=== PATIENT | male | born 1995 | race Caucasian/White ===

== ENCOUNTER 2021-11-26 01:55 | Inpatient (IN) | payer OTHER ==
[~2021-11-26] VITALS: Ht 177.8 cm; Wt 68.2 kg
[2021-11-26 02:24] LABS: HEMATOCRIT 49.1 % (42.0-52.0); HEMOGLOBIN 16.7 g/dl (13.5-17.5); MEAN CORPUSCULAR HEMOGLOBIN 29.7 pg (27.0-33.0); MEAN CORPUSCULAR VOLUME 87.2 fl (80.0-96.0); PLATELET COUNT, AUTOMATED 315 10^3/uL (150-450); RED BLOOD COUNT 5.63 10^6/uL (4.30-6.10); WHITE BLOOD COUNT 11.2 10^3/uL (4.0-10.0)
[2021-11-26 02:50] LABS: AMPHETAMINES LEVEL URINE NEGATIVE (NEGATIVE); BARBITURATES URINE NEGATIVE (NEGATIVE); BENZODIAZEPINES URINE NEGATIVE (NEGATIVE); CANNABINOIDS URINE NEGATIVE (NEGATIVE); COCAINE METABOLITE URINE NEGATIVE (NEGATIVE); METHADONE URINE NEGATIVE (NEGATIVE); OPIATES URINE NEGATIVE (NEGATIVE); PHENCYCLIDINE URINE NEGATIVE (NEGATIVE)
[2021-11-26 03:01] LABS: ACETAMINOPHEN LEVEL < 2.0 UG/ML (10.0-30.0); ALBUMIN 4.6 GM/DL (3.2-5.2); ALT/SGPT 32 U/L (12-78); BILIRUBIN,DIRECT 0.1 MG/DL (0.0-0.2); BILIRUBIN,TOTAL 0.3 MG/DL (0.2-1.0); BLOOD UREA NITROGEN 8 MG/DL (7-18); CALCIUM LEVEL 9.3 MG/DL (8.5-10.1); CARBON DIOXIDE LEVEL 29 MEQ/L (21-32); CHLORIDE LEVEL 106 MEQ/L (98-107); CREATININE FOR GFR 0.92 MG/DL (0.70-1.30); ETHYL ALCOHOL (ETHANOL) 0.252 % (0.000-0.010); GLOMERULAR FILTRATION RATE > 60.0 (>60); GLUCOSE, FASTING 94 MG/DL (70-100); POTASSIUM SERUM 4.2 MEQ/L (3.5-5.1); SALICYLATE LEVEL 4.1 MG/DL (5.0-30.0); SODIUM LEVEL 143 MEQ/L (136-145); TOTAL PROTEIN 8.6 GM/DL (6.4-8.2)
[2021-11-26 03:14] LABS: RSV AMPLIFICATION NEGATIVE (NEGATIVE)
[2021-11-26] MEDS ORDERED: LORazepam 2 MG TAB PO PRN (04:25)
[2021-11-26] MEDS: MULTIVITAMINS/MINERALS THERAP 1 TAB PO SCH (09:19)
[2021-11-26] MEDS: THIAMINE 100 MG TAB PO SCH ×2 (09:19→20:34)
[2021-11-26] MEDS: FOLIC ACID 1 MG TAB PO SCH (09:19)
[2021-11-27] MEDS ORDERED: HOME MED LIST COMPLETE! XX SCH (07:10)
[2021-11-27] MEDS: FOLIC ACID 1 MG TAB PO SCH (09:00)
[2021-11-27] MEDS: NICOTINE 21MG/24HR 1 EA TRANSDERMAL TD SCH (09:00)
[2021-11-27] MEDS: MULTIVITAMINS/MINERALS THERAP 1 TAB PO SCH (09:00)
[2021-11-27] MEDS: THIAMINE 100 MG TAB PO SCH ×2 (09:00→21:57)
[2021-11-27] MEDS ORDERED: MOM 30ML SUSPENSION UDC PO PRN (12:30)
[2021-11-27] MEDS ORDERED: diphenhydrAMINE 25MG CAP PO PRN (12:30)
[2021-11-27] MEDS ORDERED: ACETAMINOPHEN TAB 650MG DOSE (2X325MG) PO PRN (12:30)
[2021-11-27] MEDS ORDERED: MAALOX 30 ML SUSP *UDC PO PRN (12:30)
[2021-11-27] MEDS ORDERED: OLANZapine 5 MG TAB PO PRN (12:30)
[2021-11-27] MEDS ORDERED: LORazepam 2 MG TAB PO PRN (12:30)
[2021-11-27 17:15] VITALS: BP 136/82
[2021-11-27 17:20] VITALS: BP 136/82
[2021-11-27] MEDS: traZODone 50 MG TAB PO PRN (21:57)
[2021-11-28 06:38] VITALS: BP 132/71
[2021-11-28] MEDS: NICOTINE 21MG/24HR 1 EA TRANSDERMAL TD SCH (08:21)
[2021-11-28] MEDS: MULTIVITAMINS/MINERALS THERAP 1 TAB PO SCH (08:21)
[2021-11-28] MEDS: FOLIC ACID 1 MG TAB PO SCH (08:21)
[2021-11-28] MEDS: THIAMINE 100 MG TAB PO SCH ×2 (08:21→20:18)
[2021-11-28] MEDS: SERTRALINE HCL 25 MG TABLET PO SCH (11:55)
[2021-11-28 15:00] VITALS: BP 140/83
[2021-11-28 15:47] VITALS: BP 140/83
[2021-11-28] MEDS: traZODone 50 MG TAB PO PRN (20:18)
[2021-11-28 21:17] VITALS: BP 140/83
[2021-11-29 06:48] VITALS: BP 121/56
[2021-11-29 06:49] VITALS: BP 121/56
[2021-11-29] MEDS: MULTIVITAMINS/MINERALS THERAP 1 TAB PO SCH (08:11)
[2021-11-29] MEDS: FOLIC ACID 1 MG TAB PO SCH (08:11)
[2021-11-29] MEDS: NICOTINE 21MG/24HR 1 EA TRANSDERMAL TD SCH (08:11)
[2021-11-29] MEDS: THIAMINE 100 MG TAB PO SCH ×2 (08:12→20:48)
[2021-11-29] MEDS: SERTRALINE HCL 25 MG TABLET PO SCH (08:12)
[2021-11-29 16:01] VITALS: BP 138/79
[2021-11-29 20:11] VITALS: BP 138/79
[2021-11-29] MEDS: traZODone 50 MG TAB PO PRN (20:47)
[2021-11-30 06:24] VITALS: BP 142/64
[2021-11-30 06:25] VITALS: BP 142/64
[2021-11-30] MEDS: MULTIVITAMINS/MINERALS THERAP 1 TAB PO SCH (08:05)
[2021-11-30] MEDS: FOLIC ACID 1 MG TAB PO SCH (08:05)
[2021-11-30] MEDS: SERTRALINE HCL 50 MG TAB PO SCH (08:05)
[2021-11-30] MEDS: THIAMINE 100 MG TAB PO SCH (08:05)
[2021-11-30] MEDS: NICOTINE 21MG/24HR 1 EA TRANSDERMAL TD SCH (08:06)
[2021-11-30 14:00] VITALS: BP 146/68
[2021-11-30 15:00] VITALS: BP 146/68
[2021-11-30] MEDS: hydrOXYzine 25 MG TAB PO PRN (20:08)
[2021-11-30] MEDS: traZODone 50 MG TAB PO PRN (20:08)
[2021-12-01] MEDS ORDERED: HYDR-3363 PO (08:15)
[2021-12-01] MEDS ORDERED: TRAZ-252 PO (08:15)
[2021-12-01] MEDS ORDERED: SERT50TA29 PO (08:15)
[2021-12-01] MEDS: NICOTINE 21MG/24HR 1 EA TRANSDERMAL TD SCH (08:18)
[2021-12-01] MEDS: SERTRALINE HCL 50 MG TAB PO SCH (08:20)
[2021-12-01] MEDS: hydrOXYzine 25 MG TAB PO PRN (08:20)
== END 2021-12-01 09:10 | DRG 881 ==
LOC: M ED 01:55 → M ED INP 11-27 12:30 → M PSY 11-27 17:07
PROVIDERS: ADMIT Student in an Organized Health Care Education/Training Program; ATTEND Student in an Organized Health Care Education/Training Program
DX: F32.A Depression, unspecified (principal); R45.851 Suicidal ideations; F41.1 Generalized anxiety disorder; F32.9 Major depressive disorder, single episode, unspecified; F43.10 Post-traumatic stress disorder, unspecified; F10.10 Alcohol abuse, uncomplicated; F17.210 Nicotine dependence, cigarettes, uncomplicated; Z88.0 Allergy status to penicillin

== ENCOUNTER 2022-06-15 01:12 | Emergency (ER) | payer OTHER ==
[~2022-06-15] VITALS: Ht 175.3 cm; Wt 77.6 kg
[~2022-06-15 01:12] MED LIST: HYDR-3363 PO; SERT50TA29 PO; TRAZ-252 PO
[2022-06-15] MEDS ORDERED: NS 1,000 ML IV ONE (01:40)
[2022-06-15 01:56] LABS: BASO # 0.1 10^3/uL (0.0-0.2); BASO % 0.5 % (0.0-1.0); EOS # 0.9 10^3/uL (0.0-0.5); EOS % 8.2 % (0.0-3.0); HEMATOCRIT 46.2 % (42.0-52.0); HEMOGLOBIN 15.4 g/dl (13.5-17.5); LYMPH # 4.2 10^3/uL (1.5-5.0); LYMPH % 37.9 % (24.0-44.0); MEAN CORPUSCULAR HEMOGLOBIN 29.1 pg (27.0-33.0); MEAN CORPUSCULAR HGB CONC 33.3 g/dl (32.0-36.5); MEAN CORPUSCULAR VOLUME 87.3 fl (80.0-96.0); MONO % 8.8 % (2.0-8.0); NEUTROPHILS # 4.8 10^3/uL (1.5-8.5); NEUTROPHILS % 44.1 % (36.0-66.0); PLATELET COUNT, AUTOMATED 231 10^3/uL (150-450); RED BLOOD COUNT 5.29 10^6/uL (4.30-6.10)
[2022-06-15 02:22] LABS: ACETAMINOPHEN LEVEL < 2.0 UG/ML (10.0-30.0); ALBUMIN 3.8 GM/DL (3.2-5.2); ALT/SGPT 64 U/L (12-78); BILIRUBIN,DIRECT < 0.1 MG/DL (0.0-0.2); BILIRUBIN,TOTAL 0.3 MG/DL (0.2-1.0); BLOOD UREA NITROGEN 13 MG/DL (7-18); CALCIUM LEVEL 8.9 MG/DL (8.5-10.1); CARBON DIOXIDE LEVEL 24 MEQ/L (21-32); CHLORIDE LEVEL 105 MEQ/L (98-107); CREATININE FOR GFR 1.01 MG/DL (0.70-1.30); ETHYL ALCOHOL (ETHANOL) 0.333 % (0.000-0.010); GLOMERULAR FILTRATION RATE > 60.0 (>60); GLUCOSE, FASTING 103 MG/DL (70-100); POTASSIUM SERUM 4.3 MEQ/L (3.5-5.1); SALICYLATE LEVEL 3.6 MG/DL (5.0-30.0); SODIUM LEVEL 140 MEQ/L (136-145); TOTAL PROTEIN 7.2 GM/DL (6.4-8.2)
[2022-06-15] MEDS ORDERED: NS 2,000 ML in IV 1 EA IV ONE (02:30)
[2022-06-15 02:40] LABS: AMPHETAMINES LEVEL URINE NEGATIVE (NEGATIVE); BARBITURATES URINE NEGATIVE (NEGATIVE); BENZODIAZEPINES URINE NEGATIVE (NEGATIVE); CANNABINOIDS URINE NEGATIVE (NEGATIVE); COCAINE METABOLITE URINE NEGATIVE (NEGATIVE); METHADONE URINE NEGATIVE (NEGATIVE); OPIATES URINE NEGATIVE (NEGATIVE); PHENCYCLIDINE URINE NEGATIVE (NEGATIVE)
[2022-06-15 02:59] LABS: APPEARANCE, URINE MANUAL CLEAR (CLEAR); COLOR, URINE MANUAL YELLOW (YELLOW)
[2022-06-15 03:00] LABS: BILIRUBIN, URINE MANUAL NEGATIVE (NEGATIVE); BLOOD URINE MANUAL NEGATIVE (NEGATIVE); GLUCOSE, URINE (UA) MANUAL NEGATIVE (NEGATIVE); KETONE, URINE MANUAL NEGATIVE (NEGATIVE); LEUKOCYTE ESTERASE, URINE MAN NEGATIVE (NEGATIVE); NITRITE, URINE MANUAL NEGATIVE (NEGATIVE); PROTEIN, URINE MANUAL NEGATIVE (NEGATIVE); UROBILINOGEN, URINE MANUAL NORMAL (NORMAL)
[2022-06-15 07:53] VITALS: BP 142/66
== END 2022-06-15 07:55 | disposition home or self-care (01) ==
LOC: M ED 01:12 → EDBD 01:12 → M ED 07:55
DX: F10.129 Alcohol abuse with intoxication, unspecified (principal); M62.82 Rhabdomyolysis; Z88.1 Allergy status to other antibiotic agents; Z79.899 Other long term (current) drug therapy

== ENCOUNTER 2022-09-05 22:01 | Inpatient (IN) | payer OTHER ==
[~2022-09-05] VITALS: Ht 177.8 cm; Wt 67.2 kg
[2022-09-05 22:36] LABS: BASO # 0.1 10^3/uL (0.0-0.2); BASO % 0.7 % (0.0-1.0); EOS # 0.5 10^3/uL (0.0-0.5); EOS % 6.9 % (0.0-3.0); HEMOGLOBIN 17.8 g/dl (13.5-17.5); LYMPH % 44.6 % (24.0-44.0); MEAN CORPUSCULAR HEMOGLOBIN 30.7 pg (27.0-33.0); MEAN CORPUSCULAR HGB CONC 34.9 g/dl (32.0-36.5); MEAN CORPUSCULAR VOLUME 87.9 fl (80.0-96.0); MONO # 0.6 10^3/uL (0.0-0.8); MONO % 9.1 % (2.0-8.0); NEUTROPHILS # 2.6 10^3/uL (1.5-8.5); PLATELET COUNT, AUTOMATED 243 10^3/uL (150-450); WHITE BLOOD COUNT 6.8 10^3/uL (4.0-10.0)
[2022-09-05 22:56] LABS: ACETAMINOPHEN LEVEL < 2.0 UG/ML (10.0-20.0); BILIRUBIN,DIRECT 0.1 MG/DL (<0.4); CPK CREATINE PHOSPHOKINASE 104 U/L (46-171)
[2022-09-05 22:57] LABS: ALBUMIN 4.5 G/DL (3.2-5.2); ALKALINE PHOSPHATASE 73 U/L (46-116); ALT/SGPT 24 U/L (7.0-40); AST/SGOT 23 U/L (<34); BILIRUBIN,TOTAL 0.3 MG/DL (0.3-1.2); BLOOD UREA NITROGEN 10 MG/DL (9-23); CALCIUM LEVEL 8.7 MG/DL (8.5-10.1); CARBON DIOXIDE LEVEL 28 MMOL/L (20-31); CHLORIDE LEVEL 106 MMOL/L (98-107); CREATININE FOR GFR 0.98 MG/DL (0.70-1.30); GLOMERULAR FILTRATION RATE > 60.0 (>60); GLUCOSE, FASTING 77 MG/DL (60-100); POTASSIUM SERUM 3.8 MMOL/L (3.5-5.1); SALICYLATE LEVEL < 3.0 MG/DL (<30); SODIUM LEVEL 142 MMOL/L (136-145); TOTAL PROTEIN 8.3 G/DL (5.7-8.2)
[2022-09-05 22:59] LABS: THYROID STIMULATING HORMONE 0.944 uIU/ML (0.55-4.78)
[2022-09-05] MEDS ORDERED: NS 1,000 ML IV ONE (23:00)
[2022-09-05 23:02] LABS: RSV AMPLIFICATION NEGATIVE (NEGATIVE)
[2022-09-06] MEDS ORDERED: NS 1,000 ML IV ONE ×2 (03:40)
[2022-09-06 08:45] LABS: AMPHETAMINES LEVEL URINE NEGATIVE (NEGATIVE); BARBITURATES URINE NEGATIVE (NEGATIVE); BENZODIAZEPINES URINE NEGATIVE (NEGATIVE); CANNABINOIDS URINE NEGATIVE (NEGATIVE); COCAINE METABOLITE URINE NEGATIVE (NEGATIVE); METHADONE URINE NEGATIVE (NEGATIVE); OPIATES URINE NEGATIVE (NEGATIVE); PHENCYCLIDINE URINE NEGATIVE (NEGATIVE)
[2022-09-06] MEDS ORDERED: ARIP1TAB6 PO (09:49)
[2022-09-06] MEDS ORDERED: DOXE10CA PO (09:49)
[2022-09-06] MEDS ORDERED: PRAZ5CAP PO (09:49)
[2022-09-06] MEDS ORDERED: MULTTAB61 PO (09:49)
[2022-09-06] MEDS ORDERED: BUSP10TA PO (09:49)
[2022-09-06] MEDS ORDERED: LEXA1TAB PO (09:49)
[2022-09-06] MEDS ORDERED: HOME MED LIST COMPLETE! XX SCH (09:50)
[2022-09-06] MEDS ORDERED: IBUPROFEN 400MG TAB PO PRN (12:00)
[2022-09-06] MEDS ORDERED: busPIRone 10 MG TAB PO PRN (12:00)
[2022-09-06] MEDS ORDERED: MOM 30ML SUSPENSION UDC PO PRN (12:00)
[2022-09-06] MEDS ORDERED: LORazepam 2 MG TAB PO PRN (12:00)
[2022-09-06] MEDS ORDERED: diphenhydrAMINE 25MG CAP PO PRN (12:00)
[2022-09-06] MEDS ORDERED: MAALOX 30 ML SUSP *UDC PO PRN (12:00)
[2022-09-06 13:51] VITALS: BP 141/71
[2022-09-06] MEDS: NICOTINE 21MG/24HR 1 EA TRANSDERMAL TD SCH (14:30)
[2022-09-06] MEDS: THIAMINE 100 MG TAB PO SCH ×2 (16:52→21:59)
[2022-09-06] MEDS: MULTIVITAMINS/MINERALS THERAP 1 TAB PO SCH (16:52)
[2022-09-06] MEDS: ESCITALOPRAM OXALATE 10 MG TAB (LEXAPRO) PO SCH (16:52)
[2022-09-06] MEDS: FOLIC ACID 1MG TAB PO SCH (16:52)
[2022-09-06] MEDS: PRAZOSIN 1 MG CAP PO SCH (21:59)
[2022-09-07 06:50] VITALS: BP 121/59
[2022-09-07] MEDS: FOLIC ACID 1MG TAB PO SCH (08:22)
[2022-09-07] MEDS: THIAMINE 100 MG TAB PO SCH ×2 (08:22→20:03)
[2022-09-07] MEDS: NICOTINE 21MG/24HR 1 EA TRANSDERMAL TD SCH (08:22)
[2022-09-07] MEDS: MULTIVITAMINS/MINERALS THERAP 1 TAB PO SCH (08:23)
[2022-09-07] MEDS: ESCITALOPRAM OXALATE 10 MG TAB (LEXAPRO) PO SCH (08:23)
[2022-09-07] MEDS ORDERED: RAMELTEON 8 MG TAB (ROZEREM) PO PRN (09:45)
[2022-09-07] MEDS: NALTREXONE 50 MG TAB PO SCH (11:32)
[2022-09-07 14:00] VITALS: BP 126/70
[2022-09-07 17:23] VITALS: BP 154/79
[2022-09-07] MEDS: PRAZOSIN 1 MG CAP PO SCH (20:04)
[2022-09-08 06:25] VITALS: BP 125/60
[2022-09-08 06:55] LABS: CHOLESTEROL RISK RATIO 2.21 (<5); HDL CHOLESTEROL 68.2 MG/DL (>40); LDL CHOLESTEROL 68.4 MG/DL (<100)
[2022-09-08] MEDS: NICOTINE 21MG/24HR 1 EA TRANSDERMAL TD SCH (09:17)
[2022-09-08] MEDS: NALTREXONE 50 MG TAB PO SCH (09:18)
[2022-09-08] MEDS: FOLIC ACID 1MG TAB PO SCH (09:18)
[2022-09-08] MEDS: THIAMINE 100 MG TAB PO SCH ×2 (09:18→20:04)
[2022-09-08] MEDS: MULTIVITAMINS/MINERALS THERAP 1 TAB PO SCH (09:18)
[2022-09-08] MEDS: ESCITALOPRAM OXALATE 10 MG TAB (LEXAPRO) PO SCH (09:18)
[2022-09-08 14:00] VITALS: BP 121/61
[2022-09-08 17:16] VITALS: BP 121/61
[2022-09-08] MEDS: PRAZOSIN 1 MG CAP PO SCH (20:04)
[2022-09-08] MEDS: traZODone 50 MG TAB PO PRN (20:04)
[2022-09-08 21:40] VITALS: BP 118/67
[2022-09-09 06:27] VITALS: BP 106/53
[2022-09-09 06:31] VITALS: BP 125/67
[2022-09-09] MEDS: ESCITALOPRAM OXALATE 10 MG TAB (LEXAPRO) PO SCH (09:17)
[2022-09-09] MEDS: NALTREXONE 50 MG TAB PO SCH (09:17)
[2022-09-09] MEDS: FOLIC ACID 1MG TAB PO SCH (09:17)
[2022-09-09] MEDS: MULTIVITAMINS/MINERALS THERAP 1 TAB PO SCH (09:17)
[2022-09-09] MEDS: PILL CUTTER 1 EACH XX PRN (09:17)
[2022-09-09] MEDS: NICOTINE 21MG/24HR 1 EA TRANSDERMAL TD SCH (09:17)
[2022-09-09] MEDS: traZODone 50 MG TAB PO PRN (20:09)
[2022-09-09 20:10] VITALS: BP 125/67
[2022-09-09] MEDS: PRAZOSIN 1 MG CAP PO SCH (20:10)
[2022-09-09 20:27] VITALS: BP 149/74
[2022-09-10 06:08] VITALS: BP 119/58
[2022-09-10] MEDS: MULTIVITAMINS/MINERALS THERAP 1 TAB PO SCH (08:09)
[2022-09-10] MEDS: ESCITALOPRAM OXALATE 10 MG TAB (LEXAPRO) PO SCH (08:09)
[2022-09-10] MEDS: FOLIC ACID 1MG TAB PO SCH (08:09)
[2022-09-10] MEDS: PILL CUTTER 1 EACH XX PRN (08:09)
[2022-09-10] MEDS: NICOTINE 21MG/24HR 1 EA TRANSDERMAL TD SCH (08:10)
[2022-09-10] MEDS: NALTREXONE 50 MG TAB PO SCH (08:10)
[2022-09-10] MEDS ORDERED: RAME8TAB2 PO (08:56)
[2022-09-10] MEDS ORDERED: NICO21PAT TD (08:56)
[2022-09-10] MEDS ORDERED: TRAZ-252 PO (08:56)
[2022-09-10] MEDS ORDERED: NALT50TA4 PO (08:56)
== END 2022-09-10 13:23 | disposition home or self-care (01) | DRG 882 ==
LOC: M ED 22:01 → M ED INP 09-06 11:56 → M PSY 09-06 13:50
PROVIDERS: ADMIT Psychiatry & Neurology Psychiatry; ATTEND Student in an Organized Health Care Education/Training Program
DX: F43.10 Post-traumatic stress disorder, unspecified (principal); F41.1 Generalized anxiety disorder; F17.200 Nicotine dependence, unspecified, uncomplicated; F10.10 Alcohol abuse, uncomplicated; F32.9 Major depressive disorder, single episode, unspecified; Z79.899 Other long term (current) drug therapy; Z88.0 Allergy status to penicillin

== ENCOUNTER → 2023-03-14 | Outpatient (CLI) | payer OTHER ==
[~2023-03-14] MED LIST changes: +ARIP1TAB6 PO; +BUSP10TA PO; +DOXE10CA PO; +LEXA1TAB PO; +MULTTAB61 PO; +NALT50TA4 PO; +NICO21PAT TD; +PRAZ5CAP PO; +RAME8TAB2 PO
== END ==
LOC: M PLAIMG 12:35
PROVIDERS: ATTEND Nurse Practitioner Family
DX: R55 Syncope and collapse (principal); M54.2 Cervicalgia; M54.50 Low back pain, unspecified; M25.511 Pain in right shoulder; M25.512 Pain in left shoulder; M25.551 Pain in right hip; M25.552 Pain in left hip

== ENCOUNTER → 2023-10-14 | Outpatient (REF) | payer OTHER | LOC: M LAB REF 20:13 | PROVIDERS: ATTEND Physician Assistant | DX: L02.213 Cutaneous abscess of chest wall (principal); B96.89 Other specified bacterial agents as the cause of diseases classified elsewhere ==